=== PATIENT | male | born 1945 | race Hispanic/Latino ===

== ENCOUNTER 2021-02-06 15:48 | Emergency (ER) | payer MEDICARE ==
[~2021-02-06] VITALS: Ht 172.7 cm; Wt 77.1 kg
[2021-02-06 16:42] VITALS: BP 139/77
[2021-02-06 17:02] LABS: BASOPHILS % (AUTO) 0.5 % (0.0-5.0); EOSINOPHILS % (AUTO) 0.6 % (0.0-8.0); HEMATOCRIT 34.7 % (42-54); LYMPHOCYTES % (AUTO) 6.4 % (21.0-51.0); MEAN CORPUSCULAR HEMOGLOBIN 33.2 pg (27.0-33.0); MEAN CORPUSCULAR HGB CONC 32.3 g/dL (32.0-36.0); MONOCYTES % (AUTO) 8.5 % (3.0-13.0); PLATELET COUNT (AUTO) 105 K/uL (130-400); RED BLOOD CELL COUNT(AUTO) 3.37 MIL/uL (4.50-6.20); RED CELL DISTRIBUTION WIDTH 14.4 % (11.0-15.5); WHITE BLOOD COUNT (AUTO) 11.4 K/uL (4.8-10.8)
[2021-02-06 17:05] LABS: APPEARANCE,URINE SL CLOUDY (CLEAR); BILIRUBIN,URINE SMALL (NEGATIVE); COLOR,URINE YELLOW (YELLOW); GLUCOSE, URINE (UA) NEGATIVE (NEGATIVE); KETONES,URINE NEGATIVE (NEGATIVE); LEUKOCYTE ESTERASE ,URINE MODERATE (NEGATIVE); NITRATE,URINE NEGATIVE (NEGATIVE); OCCULT BLOOD,URINE LARGE (NEGATIVE); PROTEIN,URINE 100 mg/dL (NEGATIVE)
[2021-02-06 17:16] LABS: CARBON DIOXIDE 29 mmol/L (21-32); CHLORIDE 104 mmol/L (101-111); CREATININE 0.9 mg/dL (0.5-1.5); GLOMERULAR FILTR. RATE CALC 87 mL/min (>60); GLUCOSE,RANDOM 103 mg/dL (70-105); POTASSIUM 3.4 mmol/L (3.5-5.1); SODIUM SERUM 138 mmol/L (136-145); UREA NITROGEN, BLOOD 12 mg/dL (7-18)
[2021-02-06 17:18] LABS: WBC,URINE 26-50 /HPF (0-1)
[2021-02-06 17:19] LABS: BACTERIA,URINE Few /HPF (None Seen); SQUAMOUS EPITHELIAL CELL,UR Rare /HPF (0-2)
[2021-02-06 17:20] LABS: ALBUMIN 3.2 g/dL (3.5-5.0); ASPARTATE AMINOTRANSFERASE 12 U/L (10-37); BILIRUBIN,TOTAL 0.6 mg/dL (0.2-1.0); TOTAL PROTEIN, SERUM 6.5 g/dL (6.0-8.3)
[2021-02-06 17:21] LABS: ALANINE AMINOTRANSFERASE < 6 U/L (12-78)
[2021-02-06] MEDS ORDERED: CEFTRIAXONE 1G VIAL IVP ONE (17:30)
[2021-02-06 17:31] LABS: B-TYPE NATRIURETIC PEPTIDE 15 pg/mL (0-100)
[2021-02-06 18:12] VITALS: BP 195/111
[2021-02-06] MEDS ORDERED: CEPH500B PO (18:22)
[2021-02-06] MEDS ORDERED: NIFEDIPINE 10 MG CAP PO SCH (18:30)
[2021-02-06 18:51] VITALS: BP 148/74
[2021-02-06] MEDS ORDERED: POTASSIUM BICARB/CIT AC 25 MEQ TABLET.EFF PO ONE (19:00)
== END 2021-02-06 18:53 | disposition home or self-care (01) ==
LOC: EDH 15:48
DX: I10 Essential (primary) hypertension (principal); N39.0 Urinary tract infection, site not specified; E87.6 Hypokalemia; G20 Parkinson's disease; E78.00 Pure hypercholesterolemia, unspecified; F41.9 Anxiety disorder, unspecified; F32.9 Major depressive disorder, single episode, unspecified
CPT/HCPCS: 36415; 71045; 80053; 81001; 83880; 84484; 85025; 86140; 87077; 87088; 87186; 93005; 96374; 99285; J0696

== ENCOUNTER 2021-08-03 10:21 | Emergency (ER) | payer OTHER, MEDICARE ==
[~2021-08-03] VITALS: Ht 177.8 cm; Wt 79.4 kg
[~2021-08-03 10:21] MED LIST: CEPH500B PO
[2021-08-03] MEDS ORDERED: LIDOCAINE 1%-EPI 1:100,000 20 ML VIAL IJ SCH (12:00)
[2021-08-03] MEDS ORDERED: DIPH,PERTUSS(ACELL),TET VAC/PF 0.5 ML VIAL IM ONE (12:00)
[2021-08-03] MEDS ORDERED: CEPH500B PO (12:48)
[2021-08-03 13:11] VITALS: BP 139/79
== END 2021-08-03 13:27 | disposition home or self-care (01) ==
LOC: EDH 10:21
DX: S61.412A Laceration without foreign body of left hand, initial encounter (principal); S61.012A Laceration without foreign body of left thumb without damage to nail, initial encounter; S09.90XA Unspecified injury of head, initial encounter; I10 Essential (primary) hypertension; G20 Parkinson's disease; Z90.79 Acquired absence of other genital organ(s); W18.39XA Other fall on same level, initial encounter; Y93.89 Activity, other specified; Y92.89 Other specified places as the place of occurrence of the external cause; Y99.8 Other external cause status
CPT/HCPCS: 12002; 90471; 90715

== ENCOUNTER 2021-10-19 12:48 | Emergency (ER) | payer OTHER, MEDICARE ==
[~2021-10-19] VITALS: Ht 177.8 cm; Wt 81.6 kg
[2021-10-19 13:32] LABS: CREATININE 0.8 mg/dL (0.5-1.5); POTASSIUM 4.9 mmol/L (3.5-5.1)
[2021-10-19 13:43] LABS: ALBUMIN 3.7 g/dL (3.5-5.0); BILIRUBIN,TOTAL 0.6 mg/dL (0.2-1.0); MAGNESIUM 2.1 mg/dL (1.80-2.40); TOTAL PROTEIN, SERUM 7.3 g/dL (6.0-8.3)
[2021-10-19 13:56] LABS: BASOPHILS % (AUTO) 0.7 % (0.0-5.0); EOSINOPHILS % (AUTO) 1.1 % (0.0-8.0); HEMATOCRIT 36.1 % (42-54); LYMPHOCYTES % (AUTO) 13.4 % (21.0-51.0); MEAN CORPUSCULAR HEMOGLOBIN 32.9 pg (27.0-33.0); MEAN CORPUSCULAR VOLUME 99.7 fL (79-99); NEUTROPHILS % (AUTO) 71.8 % (40.0-77.0); PLATELET COUNT (AUTO) 161 K/uL (130-400); RED BLOOD CELL COUNT(AUTO) 3.62 MIL/uL (4.50-6.20); RED CELL DISTRIBUTION WIDTH 15.7 % (11.0-15.5); WHITE BLOOD COUNT (AUTO) 8.2 K/uL (4.8-10.8)
[2021-10-19 14:26] LABS: APPEARANCE,URINE Clear (CLEAR); BILIRUBIN,URINE Negative (NEGATIVE); COLOR,URINE Yellow (YELLOW); GLUCOSE, URINE (UA) Negative (NEGATIVE); KETONES,URINE Negative (NEGATIVE); LEUKOCYTE ESTERASE ,URINE Moderate (NEGATIVE); NITRATE,URINE Negative (NEGATIVE); OCCULT BLOOD,URINE Negative (NEGATIVE); PROTEIN,URINE Negative (NEGATIVE); UROBILINOGEN,URINE 0.2 mg/dL (0.2-1.0)
[2021-10-19 14:58] LABS: BACTERIA,URINE Moderate /HPF (None Seen); MUCUS,URINE Few LPF (None Seen); RBC,URINE 0-1 /HPF (0-1); SQUAMOUS EPITHELIAL CELL,UR Few /HPF (0-2)
[2021-10-19 15:03] LABS: AMPHET/METH SCREEN,URINE NEGATIVE (NEGATIVE); BARBITURATE SCREEN, URINE NEGATIVE (NEGATIVE); BENZODIAZEPINES SCREEN,URINE NEGATIVE (NEGATIVE); CANNABINOID SCREEN,URINE NEGATIVE (NEGATIVE); COCAINE SCREEN,URINE NEGATIVE (NEGATIVE); OPIATE SCREEN,URINE NEGATIVE (NEGATIVE); PHENCYCLIDINE SCREEN,URINE NEGATIVE (NEGATIVE)
[2021-10-19] MEDS ORDERED: CIPR500S4 PO (15:48)
[2021-10-19] MEDS ORDERED: 0.9%NACL 1000ML 1,000 ML IV ONE (16:00)
[2021-10-19 17:21] VITALS: BP 154/79
== END 2021-10-19 17:26 | disposition home or self-care (01) ==
LOC: EDH 12:48
DX: N39.0 Urinary tract infection, site not specified (principal); G20 Parkinson's disease; G62.9 Polyneuropathy, unspecified; I10 Essential (primary) hypertension; Z85.46 Personal history of malignant neoplasm of prostate
CPT/HCPCS: 36415; 51702; 70450; 80053; 80305; 81001; 82550; 83735; 83874; 84484; 85025; 87077; 87088; 87186; 93005; 96360; 99285; J7030

== ENCOUNTER → 2023-04-04 | Outpatient (CLI) | payer OTHER, MEDICARE ==
[~2023-04-04] MED LIST changes: +CIPR500S4 PO
== END | disposition home or self-care (01) ==
LOC: WHH 09:26
PROVIDERS: ATTEND Nurse Practitioner Family
DX: S51.011D Laceration without foreign body of right elbow, subsequent encounter (principal); I10 Essential (primary) hypertension; G62.9 Polyneuropathy, unspecified; G20 Parkinson's disease; Z99.3 Dependence on wheelchair; Z98.49 Cataract extraction status, unspecified eye; Z85.46 Personal history of malignant neoplasm of prostate; Z85.828 Personal history of other malignant neoplasm of skin; Z87.891 Personal history of nicotine dependence; Z79.899 Other long term (current) drug therapy; X58.XXXD Exposure to other specified factors, subsequent encounter
CPT/HCPCS: G0463